=== PATIENT | male | born 1950 | race Caucasian/White ===

== ENCOUNTER 2016-09-18 14:31 | Emergency (ER) | payer OTHER ==
[~2016-09-18] VITALS: Ht 198.1 cm; Wt 81.6 kg
[~2016-09-18 14:31] MED LIST: ASPI-482 PO; ATORVASTATIN CA80 MG PO; CARV6.252 PO; CLOP75TA PO; GLIP10TA20 PO; MOXI3DRO2 OP; NEPA1.7D OP; PRED10DR OP; SITA1TAB7 PO
[2016-09-18 14:40] VITALS: BP 107/81
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
== END 2016-09-18 15:55 | disposition home or self-care (01) ==
LOC: ER 14:31
DX: S80.01XA Contusion of right knee, initial encounter (principal); E11.9 Type 2 diabetes mellitus without complications; I10 Essential (primary) hypertension; I25.2 Old myocardial infarction; F17.220 Nicotine dependence, chewing tobacco, uncomplicated; V09.9XXA Pedestrian injured in unspecified transport accident, initial encounter; Y93.55 Activity, bike riding; Y99.8 Other external cause status; Y92.89 Other specified places as the place of occurrence of the external cause
CPT/HCPCS: 73564; 99284

== ENCOUNTER → 2017-01-05 | Outpatient (CLI) | payer OTHER ==
[~2017-01-05] MED LIST changes: +GLIP-112 PO; -GLIP10TA20 PO
--- NOTE | 2017-01-05 11:14 | RAD ---
Right shoulder radiograph 01/05/2017 at 10:56 AM Indication: Adhesive capsulitis of the right shoulder. Pain and stiffness for one month. Comparison: Chest radiograph 01/21/2016 Technique: 3 views of the right shoulder are provided. Findings: There is no acute fracture or dislocation involving the acromioclavicular and glenohumeral joint. There is no soft tissue swelling. Mild osteoarthrosis is noted about the acromioclavicular joint. Visualized portions of the right lung are clear. Impression: 1. No acute fracture or dislocation. 2. Mild osteoarthrosis of the acromioclavicular joint.
[2017-01-05 11:44] LABS: ALBUMIN 3.6 g/dL (3.4-5.0); ALBUMIN/GLOBULIN RATIO 0.9 (1.0-1.7); CALCIUM 8.8 mg/dL (8.5-10.1); CREATININE 1.3 mg/dL (0.7-1.3); GFR 54.9; POTASSIUM 4.4 mmol/L (3.5-5.1); TOTAL BILIRUBIN 0.5 mg/dL (0.2-1.0); TOTAL PROTEIN 7.6 g/dL (6.4-8.2)
[2017-01-05 11:46] LABS: BASO # 0.1 x10^3/uL (0.0-0.2); BASO % 1 % (0-3); EOS # 0.3 x10^3/uL (0.0-0.7); EOS % 3 % (0-3); HEMATOCRIT 42.8 % (39.0-53.0); HEMOGLOBIN 14.1 g/dL (13.0-17.5); LYMPH # 2.4 x10^3/uL (1.0-4.8); LYMPH % 26 % (24-48); MEAN CORPUSCULAR HEMOGLOBIN 31 pg (25-35); MEAN CORPUSCULAR HGB CONC 33 g/dL (31-37); MEAN CORPUSCULAR VOLUME 93 fL (79-100); MONO # 0.6 x10^3/uL (0.0-1.1); MONO % 7 % (0-9); NEUT # 5.9 x10^3uL (1.8-7.7); NEUT % 64 % (31-73); PLATELET COUNT 192 x10^3/uL (140-400); RED CELL DISTRIBUTION WIDTH 14.1 % (11.5-14.5); WHITE BLOOD COUNT 9.3 x10^3/uL (4.0-11.0)
[2017-01-06 04:08] LABS: HEMOGLOBIN A1C 6.1 % (4.8-5.6)
== END | disposition home or self-care (01) ==
LOC: DXRAD 10:37
PROVIDERS: ATTEND Family Medicine
DX: M75.01 Adhesive capsulitis of right shoulder (principal); M19.011 Primary osteoarthritis, right shoulder
CPT/HCPCS: 36415; 73030; 80053; 83036; 85027

== ENCOUNTER → 2017-04-06 | Outpatient (CLI) | payer OTHER ==
[~2017-04-06] MED LIST changes: +ARIP10TA9 PO; +DOXE10CA PO; +GLIP10TA13 PO; +LIPITOR80 MG PO; +LISI10TA2 PO
--- NOTE | 2017-04-06 13:00 | RAD ---
Indication injury, pain. AP oblique and lateral views of the right hand were obtained. No bony abnormality is seen
== END | disposition home or self-care (01) ==
LOC: DXRAD 12:17
PROVIDERS: ATTEND Family Medicine
DX: M79.641 Pain in right hand (principal)
CPT/HCPCS: 73130

== ENCOUNTER 2017-06-21 14:59 | Inpatient (IN) | payer MEDICARE, OTHER ==
[~2017-06-21] VITALS: Ht 200.7 cm; Wt 105.2 kg
[2017-06-21 15:24] LABS: BASO # 0.1 x10^3/uL (0.0-0.2); BASO % 1 % (0-3); EOS # 0.2 x10^3/uL (0.0-0.7); EOS % 2 % (0-3); HEMATOCRIT 42.3 % (39.0-53.0); HEMOGLOBIN 14.7 g/dL (13.0-17.5); LYMPH # 1.9 x10^3/uL (1.0-4.8); LYMPH % 22 % (24-48); MEAN CORPUSCULAR HEMOGLOBIN 32 pg (25-35); MEAN CORPUSCULAR HGB CONC 35 g/dL (31-37); MEAN CORPUSCULAR VOLUME 92 fL (79-100); MONO # 0.5 x10^3/uL (0.0-1.1); MONO % 5 % (0-9); NEUT # 6.2 x10^3uL (1.8-7.7); NEUT % 70 % (31-73); PLATELET COUNT 165 x10^3/uL (140-400); RED BLOOD COUNT 4.59 x10^6/uL (4.30-5.70); RED CELL DISTRIBUTION WIDTH 13.7 % (11.5-14.5); WHITE BLOOD COUNT 8.8 x10^3/uL (4.0-11.0)
--- NOTE | 2017-06-21 15:32 | RAD ---
Clinical Indication: Altered mental status Technique: Study is dated June 21, 2017. CT images of the head were obtained from the skull base to the vertex without IV contrast. There are no comparison studies available. One or more of the following individualized dose reduction techniques were utilized for this examination: 1. Automated exposure control 2. Adjustment of the mA and/or kV according to patient size 3. Use of iterative reconstruction technique Findings: There is diffuse, symmetric prominence of the ventricles and subarachnoid spaces consistent with age-related parenchymal volume loss. There are areas of scattered decreased attenuation in the supratentorial white matter. While nonspecific, findings are likely secondary to small vessel ischemic disease. There is no hemorrhage, extraaxial fluid collection, mass, or midline shift. There is no large vascular distribution infarct. The posterior fossa and brainstem are unremarkable. There is a right scleral buckle. The visualized paranasal sinuses are clear. There is no skull fracture appreciated on bone level images. Impression: No acute intracranial findings. Brain parenchymal volume loss and probable small vessel ischemic disease. Electronically signed by: Jeffery Mcguire MD (06/21/2017 3:29 PM) [facility] – [place]
[2017-06-21 16:14] LABS: ALBUMIN 3.4 g/dL (3.4-5.0); CALCIUM 8.8 mg/dL (8.5-10.1); GFR 74.3; POTASSIUM 3.7 mmol/L (3.5-5.1); TOTAL BILIRUBIN 0.4 mg/dL (0.2-1.0); TOTAL PROTEIN 6.9 g/dL (6.4-8.2)
[2017-06-21 16:19] LABS: BILIRUBIN,URINE NEG (NEG); CLARITY,URINE CLEAR; COLOR,URINE YELLOW; GLUCOSE,URINE NEG (NEG); NITRITE,URINE NEG (NEG); UROBILINOGEN,URINE 0.2 mg/dL (0.2 mg/dL)
[2017-06-21 16:20] LABS: BACTERIA,URINE 0 /HPF (0-FEW); HYALINE CASTS, URINE OCC /HPF; SQUAMOUS EPITHELIAL CELL,UR OCC /LPF; WBC,URINE OCC /HPF (0-4)
[2017-06-21] MEDS ORDERED: IV NORMAL SALINE 1,000ML 1,000 ML IV ONE (17:00)
--- NOTE | 2017-06-21 17:00 | PHYS DOC ---
Past History Past Medical History: Dementia, Diabetes, Hypertension, [place] Past Surgical History: No Surgical History Additional Smoking Information: Pt states he uses chewing tobacco Alcohol Use: None Drug Use: None Adult General Chief Complaint Chief Complaint: ALTERED MENTAL STATUS HPI HPI Patient is a 66-year-old male brought by EMS from home after a fall. History is from the patient, his sister, and EMS. The patient has a history of dementia. He lives alone in his own home, but his neighbor put a villalba takes care of him. She fixes him meals and make sure that he takes his medications. The patient's sister is in town from [facility]. The patient's sister tells me that he has gone downhill a lot since she Josiah February. She thinks these lasted about 35 pounds. He is not eating well. He is more confused than he was then. Today, the patient was going into the house when he fell forward, striking his face on the floor. Sister was unable to get him up herself so she called 911. EMS stated they were able to get him up and he did ambulate without complaints but they felt that he was unsteady so brought him to the ED. Patient denies frequent falls, said he has had "a couple" falls. Patient does not use a walker or a cane. PCP Dr. Jennings. The patient does know who his doctor is. Review of Systems Review of Systems Patient has confusion and dementia, review of systems is felt to be inaccurate. Current Medications Current Medications Current Medications Medications (Trade) Dose Ordered Sig/Davon Start Time Stop Time Status Last Admin Dose Admin Sodium Chloride 1,000 ml @ 75 mls/hr 1X ONCE 06/21/17 17:00 06/22/17 06:19 UNV Allergies Allergies Allergies Coded Allergies Type Severity Reaction Last Updated Verified No Known Allergies Allergy Unknown 11/14/13 No Physical Exam Physical Exam Constitutional: Well developed, well nourished, no acute distress, non-toxic appearance. Alert. Cooperative. Vital signs stable. HENT: Normocephalic, bilateral external ears normal, oropharynx a bit dry, nose normal. Some redness of the right side of his face without significant swelling or deformity. 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 Neck: Normal range of motion, no stridor. [] Cardiovascular:Heart rate regular rhythm, no murmur [] Lungs & Thorax: Bilateral breath sounds clear to auscultation [] Abdomen: Bowel sounds normal, soft, no tenderness, no masses, no pulsatile masses. [] Skin: Warm, dry, no erythema, no rash. [] Extremities: No tenderness, no cyanosis, no clubbing, ROM intact, no edema. Small skin tear on the lateral aspect of the right forearm, no bony tenderness or deformity. Neurologic: Alert and oriented X 3, normal motor function, no focal deficits noted. [] Current Patient Data Vital Signs Vital Signs Date Time Temp Pulse Resp B/P (MAP) Pulse Ox O2 Delivery O2 Flow Rate FiO2 06/21/17 14:59 97.6 75 16 98 Room Air Lab Results Laboratory Tests Test 06/21/17 15:05 06/21/17 15:28 06/21/17 15:40 White Blood Count 8.8 x10^3/uL (4.0-11.0) Red Blood Count 4.59 x10^6/uL (4.30-5.70) Hemoglobin 14.7 g/dL (13.0-17.5) Hematocrit 42.3 % (39.0-53.0) Mean Corpuscular Volume 92 fL (79-100) Mean Corpuscular Hemoglobin 32 pg (25-35) Mean Corpuscular Hemoglobin Concent 35 g/dL (31-37) Red Cell Distribution Width 13.7 % (11.5-14.5) Platelet Count 165 x10^3/uL (140-400) Neutrophils (%) (Auto) 70 % (31-73) Lymphocytes (%) (Auto) 22 % (24-48) L Monocytes (%) (Auto) 5 % (0-9) Eosinophils (%) (Auto) 2 % (0-3) Basophils (%) (Auto) 1 % (0-3) Neutrophils # (Auto) 6.2 x10^3uL (1.8-7.7) Lymphocytes # (Auto) 1.9 x10^3/uL (1.0-4.8) Monocytes # (Auto) 0.5 x10^3/uL (0.0-1.1) Eosinophils # (Auto) 0.2 x10^3/uL (0.0-0.7) Basophils # (Auto) 0.1 x10^3/uL (0.0-0.2) Troponin I Quantitative < 0.017 ng/mL (0-0.055) Sodium Level 140 mmol/L (136-145) Potassium Level 3.7 mmol/L (3.5-5.1) Chloride Level 105 mmol/L (98-107) Carbon Dioxide Level 24 mmol/L (21-32) Anion Gap 11 (6-14) Blood Urea Nitrogen 14 mg/dL (8-26) Creatinine 1.0 mg/dL (0.7-1.3) Estimated GFR (Cockcroft-Gault) 74.3 BUN/Creatinine Ratio 14 (6-20) Glucose Level 87 mg/dL (70-99) Calcium Level 8.8 mg/dL (8.5-10.1) Total Bilirubin 0.4 mg/dL (0.2-1.0) Aspartate Amino Transferase (AST) 29 U/L (15-37) Alanine Aminotransferase (ALT) 37 U/L (16-63) Alkaline Phosphatase 116 U/L (46-116) Creatine Kinase 76 U/L (39-308) Creatine Kinase MB (Mass) 0.8 ng/mL (0.0-3.6) Creatine Kinase MB Relative Index 1.1 % (0-4) ZP-Yfd-T-Type Natriuretic Peptide 749 pg/mL (0-124) H Total Protein 6.9 g/dL (6.4-8.2) Albumin 3.4 g/dL (3.4-5.0) Albumin/Globulin Ratio 1.0 (1.0-1.7) Urine Collection Type Unknown Urine Color Yellow Urine Clarity Clear Urine pH 6.0 Urine Specific Bowie 1.020 Urine Protein Trace (NEG-TRACE) Urine Glucose (UA) Neg mg/dL (NEG) Urine Ketones (Stick) Trace mg/dL (NEG) Urine Blood Large (NEG) Urine Nitrite Neg (NEG) Urine Bilirubin Neg (NEG) Urine Urobilinogen Dipstick 0.2 mg/dL (0.2 mg/dL) Urine Leukocyte Esterase Neg (NEG) Urine RBC 3-5 /HPF (0-2) Urine WBC Occ /HPF (0-4) Urine Squamous Epithelial Cells Occ /LPF Urine Transitional Epithelial Cells Occ /LPF Urine Bacteria 0 /HPF (0-FEW) Urine Hyaline Casts Occ /HPF Urine Mucus Mod /LPF EKG EKG [] Radiology/Procedures Radiology/Procedures CT scan of the head read by the radiologist. No acute findings. One view portable chest x-ray read by me. Heart size normal. Lung hewitt are clear. Chest x-ray is normal.[] Course & Med Decision Making Course & Med Decision Making Pertinent Labs and Imaging studies reviewed. (See chart for details) 66-year-old male with a history of dementia presents by EMS after a fall at home. He does not have an apparent serious injury. Patient's sister is here with him and says that he has gone downhill a lot in the last 2 or 3 months. His confusion is worse, he has lost about 35 pounds. Today's fall was the first witnessed fall. Patient is having a hard time describing his symptoms although he may be dizzy or lightheaded. After labs, CT are back, ED nursing staff gave the patient a trial of ambulation. Reportedly, the patient was able to get up from his bed and walk several steps without difficulty to the doorway of the room, and then he suddenly went forward and almost fell. He was able to be caught by ED RN and put into a wheelchair. Patient said he felt dizzy. ED evaluation is quite unremarkable except for his inability to safely ambulate. The etiology of his symptoms is unclear at this time. I considered whether his symptoms could be due to a stroke. It's possible that he has had a stroke affecting his gait. However, he has a nonfocal neuro exam and cerebellar testing in the bed is normal. ED RN reported that he took several steps that appeared normal and then sort of staggered and began to fall forward, so it does not sound like a fixed neurologic deficit. On arrival, we did not have last known normal, his sister was not with him prior to witnessing the fall, she had been at the neighbor's house and had been outside with the dog, so there was never a consideration for thrombolytics, and I don't believe he would' ve met criteria anyway with a nonfocal neuro exam. I believe he should be hospitalized for some IV fluids to see if that makes any difference, and observation. If his gait does not improve, he may need to go to rehabilitation, he is not safe to be discharged to home alone certainly at this time. I discussed this with the patient and his sister who are agreeable at this time for the patient to be admitted. I discussed the case with Dr. Poe, who will admit the patient. I wrote bridge orders. Dragon Disclaimer Dragon Disclaimer This electronic medical record was generated, in whole or in part, using a voice recognition dictation system. Departure Departure: Impression: Primary Impression: Confusion Additional Impressions: Fall Altered mental status Weakness Disposition: ADMITTED INPATIENT Admitting Physician: Alissa Poe Condition: STABLE Referrals: Kali JENNINGS MD (PCP) Problem Qualifiers MIRIAM YANG MD Jun 21, 2017 16:59
[2017-06-21 18:22] VITALS: BP 166/104
[2017-06-21] MEDS ORDERED: GLIP5TAB10 PO (18:23)
[2017-06-21 18:24] VITALS: BP 166/104
[2017-06-21] MEDS ORDERED: PNEUMOCOCCAL VAX SCREEN. MC PRN (19:45)
[2017-06-21] MEDS ORDERED: ARIP10TA15 PO (20:06)
[2017-06-21] MEDS ORDERED: NICOTINE 21MG PATCH. TD PRN (20:15)
[2017-06-21] MEDS: ATORVASTATIN CALCIUM 20 MG TABLET PO SCH (20:37)
[2017-06-21] MEDS: DOXEPIN HCL 10 MG CAPSULE PO SCH (20:37)
[2017-06-21 22:37] VITALS: BP 144/86
[2017-06-22] MEDS ORDERED: DEXTROSE 50% 25 GM / 50ML DISP.SYRIN. IV PRN (01:15)
[2017-06-22 05:02] VITALS: BP 116/82
--- NOTE | 2017-06-22 08:26 | RAD ---
EXAM: CHEST 1 VIEW History: Altered mental status COMPARISON: 01/21/2016 TECHNIQUE: Single portable radiograph of the chest FINDINGS: The cardiac silhouette is unremarkable. The lungs are clear bilaterally. The costophrenic sulci are clear and well demarcated. IMPRESSION: No radiographic evidence of an acute cardiopulmonary process.
[2017-06-22] MEDS: metFORMIN 500 MG TABLET PO SCH ×2 (08:38→17:22)
[2017-06-22] MEDS: LINAGLIPTIN 5 MG TABLET PO SCH (08:38)
[2017-06-22] MEDS: glipiZIDE 5 MG TABLET PO SCH ×2 (08:38→17:22)
[2017-06-22] MEDS: CARVEDILOL 6.25 MG TABLET PO SCH ×2 (08:38→17:22)
[2017-06-22] MEDS: ARIPiprazole 10 MG TABLET PO SCH (08:39)
[2017-06-22] MEDS: LISINOPRIL 10 MG TABLET PO SCH (08:40)
[2017-06-22 10:28] VITALS: BP 166/88
--- NOTE | 2017-06-22 13:07 | HP ---
ADMIT DATE: 06/21/2017 HISTORY OF PRESENT ILLNESS: This is a 66-year-old male who lives at home. He has dementia, but he has a neighbor that looks on him and fixes his meals and make sure that he takes his medications. The patient's sister has been also visiting from out of town and states if he cannot walk then he cannot come home. He did fall at home and fell forward striking his face on the floor. Family was unable to get him up. The patient himself is quite belligerent and right now stating he wants to go home, I hate hospitals, and is refusing to stay. This is one sister who was on the phone states if he cannot walk, he cannot come home. Then, he told his sister to "go back to [place]." PAST MEDICAL HISTORY: Difficult to obtain due to the patient's dementia and belligerence, but dementia, diabetes, hypertension, history of an PR. The patient is blind in the right eye. PAST SURGICAL HISTORY: Unknown. SOCIAL HISTORY: Smoking, patient states no, does not drink. No longer drives. REVIEW OF SYSTEMS: The patient denies problems with walking. Denies shortness of breath. Denies problems falling, overall just keep stating that he wants to go home. Also, denies dizziness or lightheadedness. OBJECTIVE: VITAL SIGNS: Blood pressure is 166/88, pulse 56, respirations 20, O2 sat is 94% on room air. Height 79 inches, weight 235 pounds. GENERAL: A 66-year-old in no acute distress. The patient is blind in the right eye. The eye itself is opaque. Left eye pupils equal, round, reactive. Extraocular muscles are intact. Nose patent. Throat clear. Tongue slightly dry. NECK: Supple. LUNGS: Clear. CARDIOVASCULAR: Regular rhythm and rate. ABDOMEN: Soft, nontender. EXTREMITIES: Without edema. MUSCULOSKELETAL: The patient with effort is able to stand up. He has a very unsteady shuffling type gait at a very high risk for falling. He was able to ambulate to the doorway and back. Did not complain of dizziness. No fine tremors were noted. The patient is not completely alert and oriented. LABORATORY DATA: Chemistry profile normal except for a BMP, slightly elevated at 749. Urinalysis is negative. Chest x-ray also negative and a head CT, no acute ____ intracranial findings of the brain, parenchymal volume loss, probable small vessel ischemic disease. ASSESSMENT: 1. Status post fall. 2. Dementia. 3. 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 4. Hypertension. 5. Diabetes. 6. Significant fall risk with unsteady gait. PLAN: PT, OT eval, family meeting regarding his rehabilitation potential. The patient refuses and wants to go home, but he is at a significant risk of falling. MOIZ QUINTERO DO DR: BRIGETTE/marin JOB#: [id number] / [id number]
[2017-06-22 15:44] VITALS: BP 160/87
[2017-06-22 19:17] VITALS: BP 175/89
[2017-06-22] MEDS: DONEPEZIL HCL 5 MG TABLET. PO SCH (20:04)
[2017-06-22] MEDS: ATORVASTATIN CALCIUM 20 MG TABLET PO SCH (20:04)
[2017-06-22] MEDS: DOXEPIN HCL 10 MG CAPSULE PO SCH (20:04)
--- NOTE | 2017-06-22 21:14 | PDOC ---
Exam Note: Isauro Note: Please also refer to the separate dictated note~for this date of service dictated separately.~Patient seen individually. Discussed the patient with Nursing staff reviewed the chart.~Reviewed interim history and current functioning. Reviewed vital signs,~Labs/ Radiology~and current medications noted below. Continue current treatment with the changes noted in the dictated addendum note Assessment: Vital Signs: Vital Signs Date Time Temp Pulse Resp B/P (MAP) Pulse Ox O2 Delivery O2 Flow Rate FiO2 06/22/17 19:17 97.9 93 18 175/89 (117) 93 Room Air I&O Intake and Output 06/22/17 06:59 Intake Total 540 ml Output Total 400 ml Balance 140 ml Intake Oral 540 ml Output Urine Total 400 ml Labs: Laboratory Tests Test 06/22/17 07:38 06/22/17 11:18 06/22/17 16:33 06/22/17 19:01 Glucose (Fingerstick) 125 mg/dL (70-99) H 113 mg/dL (70-99) H 89 mg/dL (70-99) 165 mg/dL (70-99) H Current Medications: Meds: Current Medications Sodium Chloride 1,000 ml @ 75 mls/hr 1X ONCE IV Last administered on 17:00; Start 06/21/17 at 17:00; Stop 06/22/17 at 06:19; Status DC Pneumococcal Polyvalent Vaccine (Do NOT chart on this entry -- for MONITORING) 1 each PRN 1X PRN MC SEE COMMENTS; Start 06/21/17 at 19:45 Aripiprazole (Abilify) 10 mg DAILY PO Last administered on 06/22/17 08:39; Start 06/22/17 at 09:00 Carvedilol (Coreg) 6.25 mg BIDWMEALS PO Last administered on 06/22/17 17:22; Start 06/22/17 at 08:00 Doxepin HCl (SINEquan) 10 mg QHS PO Last administered on 06/22/17 20:04; Start 06/21/17 at 21:00 Glipizide (Glucotrol) 5 mg BIDBFRMEAL PO Last administered on 06/22/17 17:22 ; Start 06/22/17 at 07:30 Lisinopril (Prinivil) 10 mg DAILY PO Last administered on 06/22/17 08:40; Start 06/22/17 at 09:00 Atorvastatin Calcium (Lipitor) 80 mg QHS PO Last administered on 06/22/17 20: 04; Start 06/21/17 at 21:00 Metformin HCl (Glucophage) 500 mg BIDWMEALS PO Last administered on 06/22/17 17:22; Start 06/22/17 at 08:00 Nicotine (Nicoderm Cq 21mg) 1 patch PRN DAILY PRN TD SMOKING CESSATION; Start 06/21/17 at 20:15 Linagliptin (Tradjenta) 5 mg DAILYWBKFT PO Last administered on 06/22/17 08: 38; Start 06/22/17 at 08:00 Dextrose 12.5 gm PRN Q15MIN PRN IV SEE COMMENTS; Start 06/22/17 at 01:15 Donepezil HCl (Aricept) 5 mg QHS PO Last administered on 06/22/17 20:04; Start 06/22/17 at 21:00 Active Scripts Active Reported Aripiprazole 10 Mg Tablet 10 Mg PO DAILY Glipizide 5 Mg Tablet 1 Tab PO BID Carvedilol 6.25 Mg Tablet 1 Tab PO BID Doxepin Hcl 10 Mg Capsule 1 Cap PO QHS Janumet 50-500 Mg Tablet (Sitagliptin Phos/Metformin Hcl) 1 Each Tablet 1 Tab PO BID Lisinopril 10 Mg Tablet 1 Tab PO DAILY Atorvastatin Calcium 80 Mg Tablet 80 Mg PO HS I have reviewed the current psychotropics carefully including drug interactions. Risk benefit ratio favors no change other than as noted in my dictated progress note. Diagnosis: Problems: (1) Anxiety disorder (2) Dementia, vascular, with delusions (3) Dementia, vascular, with depression (4) Major depressive disorder, recurrent episode JAIME KEARNEY MD Jun 22, 2017 21:14
[2017-06-22 22:51] VITALS: BP 160/89
--- NOTE | 2017-06-23 03:08 | CONS ---
DATE OF CONSULTATION: 06/22/2017 PSYCHIATRIC CONSULTATION This note covers elements not covered in my initial note for 06/22/2017. IDENTIFYING DATA: The patient is a 66-year-old male referred for psychiatric consult by Dr. Rubin on account of his delusions, seeing people at times when no one is around him. He lives alone by himself in his apartment. A neighbor cares for him. The patient has been increasingly agitated, paranoid, dismissive of the neighbors help and his sister's assistance for him as well. He has appeared more confused, forgetful, can be very mean towards others when they are trying to help take care of him. He is noted to be depressed and currently on Abilify. I have been asked to consult to make recommendations on his psychotropics. CHIEF COMPLAINT: "My memory is fine. No, I don't know the year, but it is the new year. I am at [facility]." HISTORY OF PRESENT ILLNESS: As noted this note covers elements not covered in my initial note. The patient reportedly has a history of increasing psychotic symptoms, worsening symptoms of depression, hallucinations, delusions, short term memory deficits. He has been residing at home, taken care of by his neighbors, but it is getting rather dangerous recently. No active suicidal or homicidal ideation. No clear history of bipolar disorder. PAST PSYCHIATRIC HISTORY: As above. MEDICAL HISTORY: Diabetes, hypertension, history of RI, blind in the right eye. PAST SURGICAL HISTORY: Unknown. SOCIAL HISTORY: No alcohol or drug abuse history. He states he is a . Lives by himself. No longer drives. REVIEW OF SYSTEMS: Blind in right eye. Impaired ambulation. No CV, , pulmonary, ENT system symptoms on review. MENTAL STATUS EXAMINATION: Oriented to himself and situation. Speech has some latency, coherent. Abstraction fair, computation impaired, language function intact. Attention span short. Short term memory is impaired. He is quite paranoid, depressed, but minimizes the latter. No suicidal or homicidal ideation. Attention span short. A CT head shows small vessel ischemic disease. He has also been seen by Dr. Rapp. Primary care physician is Dr. Jennings in [place]. CURRENT PSYCHOTROPICS: Doxepin 10 mg at bedtime, Aricept 5 mg a day, Abilify 10 mg daily. CODE STATUS: He is full code. DRUG ALLERGIES: Negative. IMPRESSION: Major depressive disorder with psychotic features; major neurocognitive disorder, probably vascular with delusion, depression, general debility, psychotic disorder, unspecified. Rest diagnoses as above. PLAN: Continue the patient on the Aricept, Abilify, and doxepin that he is taking at current dosage. Plan is for the patient to go to the skilled rehab unit after he is medically stabilized. An option would be to [facility] given his psychotic symptoms, but I would be happy to follow him on the skilled service if needed. Dr. Rubin, thank you for the opportunity to participate in your patient's care. We will follow with you. JAIME KEARNEY MD DR: JOVANA/nts JOB#: [id number] / [id number]
--- NOTE | 2017-06-23 03:52 | CONS ---
DATE OF CONSULTATION: 06/22/2017 REASON FOR CONSULTATION: Mental status changes. HISTORY OF PRESENT ILLNESS: This is a 66-year-old male, who was admitted through Emergency Room last night after he presented with recent history of falls at home. According to his sister, the patient lives by himself and he has neighbors to take care of him. Apparently, the patient fell forward at home and was unable to get up. The visiting sister from [place] tried to help him, but she could not and then 911 was activated and brought the patient to the hospital. According to the patient, he fell twice recently. He does not use a walker or a cane. Currently, he denies nausea, vomiting, headaches, chest pain, shortness of breath or palpitation, dysarthria, dysphagia, weakness or paresthesia. According to the patient, he felt dizzy before he fell. PAST MEDICAL HISTORY: Significant for diabetes mellitus type 2, hypertension, dementia, mood disturbances and angry spells. Cataract left eye, status post eye injuries and complete loss of vision, coronary artery disease status post myocardial infarction. SOCIAL HISTORY: The patient lives independently and alone. He denies alcohol drinking, or illicit drug use. The patient is a smoker. CURRENT HOME MEDICATIONS: Lisinopril 10 mg daily, Abilify 10 mg daily, linagliptin 5 mg daily, metformin 500 mg twice daily, carvedilol 6.25 mg twice daily, glipizide 5 mg twice daily, Lipitor 80 mg at bedtime, doxepin 10 mg at bedtime. ALLERGIES: No known drug allergies. REVIEW OF SYSTEMS: A 10-point review of system was performed as mentioned above in history of present illness. PHYSICAL EXAMINATION: GENERAL: Well-developed, well-nourished white male, not in acute distress. He weighs 235 pounds, height 79 inches, not in acute distress. VITAL SIGNS: Blood pressure 166/88, respiratory rate 20, pulse is 56 and regular, temperature 98, oxygen saturation is 94% on room air. HEENT: Normocephalic, atraumatic, otherwise unremarkable. NECK: Supple. Negative for carotid bruits, lymphadenopathy or thyromegaly. LUNGS: Clear to A and P. CARDIOVASCULAR: Regular rhythm, normal S1, S2. There is no S3, S4 or murmur. ABDOMEN: Soft. Bowel sounds positive. EXTREMITIES: Negative for cyanosis, clubbing or pitting edema. NEUROLOGIC: Mental status: The patient is alert and oriented to date and place. The speech is fluent. There is no language dysfunction. Memory, judgment, and abstract thinking are impaired. The patient denies hallucination or delusion. CRANIAL NERVES: Visual hewitt are full on the left side. 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 The extraocular movements are intact. There is no nystagmus. There is no facial motor or sensory deficit. Hearing is intact bilaterally. The palate is elevated symmetrically. Sternocleidomastoid muscles are powerful bilaterally. The patient shrugs his shoulders symmetrically and protrudes his tongue in the midline without fasciculation or atrophy. MOTOR EXAMINATION: No focal muscle bulk was seen. The tone is normal. 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 Sensory examination revealed normal pinprick, light touch, vibratory and position senses. Deep tendon reflexes were symmetric and hypoactive with absent Achilles responses. Gait: The patient has a steady stance but abnormal tandem gait and had tendency to fall. DIAGNOSTIC DATA: Nonenhanced head CT scan revealed no acute intracranial process, but showed small vessel ischemic changes and chest x-ray revealed no acute cardiopulmonary process. LABORATORY DATA: CBC revealed white blood cells of 8.8 thousand; hemoglobin 14.7; hematocrit 42.3; platelet count 165,000. Chemistry revealed sodium 140, potassium 3.7, chloride 105, CO2 of 24, BUN 14, creatinine 1, glucose 87, and calcium 8.8. Troponin level less than 0.017 with an elevated NPB at 749. Urinalysis is negative for urinary tract infections. IMPRESSION: 1. Longstanding history of dementia with anger spells. Otherwise, normal neurological examination except for gait disturbances. 2. Multiple medical problems include coronary artery disease, hypertension, hyperlipidemia, diabetes mellitus type 2. 3. Depression with anger spells and dementia. RECOMMENDATIONS: 1. Continue with current care initiated by Dr. Rubin and home medications. 2. We will add donepezil 5 mg at bedtime. 3. Physical therapy evaluation and gait training. 4. For long-term, the patient may need penitentiary care or assisted living placement if it is agreeable to him. M Sunita MARIE MD DR: Maria M JOB#: [id number] / [id number]
[2017-06-23 05:09] VITALS: BP 168/93
[2017-06-23 07:10] LABS: BASO # 0.1 x10^3/uL (0.0-0.2); BASO % 1 % (0-3); EOS # 0.2 x10^3/uL (0.0-0.7); EOS % 3 % (0-3); HEMATOCRIT 40.3 % (39.0-53.0); HEMOGLOBIN 13.9 g/dL (13.0-17.5); LYMPH % 28 % (24-48); MEAN CORPUSCULAR HEMOGLOBIN 32 pg (25-35); MEAN CORPUSCULAR HGB CONC 35 g/dL (31-37); MEAN CORPUSCULAR VOLUME 92 fL (79-100); MONO # 0.4 x10^3/uL (0.0-1.1); MONO % 6 % (0-9); NEUT # 4.2 x10^3uL (1.8-7.7); NEUT % 61 % (31-73); PLATELET COUNT 147 x10^3/uL (140-400); RED BLOOD COUNT 4.38 x10^6/uL (4.30-5.70); RED CELL DISTRIBUTION WIDTH 13.4 % (11.5-14.5); WHITE BLOOD COUNT 6.9 x10^3/uL (4.0-11.0)
[2017-06-23 07:22] LABS: ALBUMIN 3.1 g/dL (3.4-5.0); CALCIUM 8.7 mg/dL (8.5-10.1); CREATININE 0.9 mg/dL (0.7-1.3); GFR 83.9; MAGNESIUM 1.5 mg/dL (1.8-2.4); POTASSIUM 3.2 mmol/L (3.5-5.1); TOTAL BILIRUBIN 0.5 mg/dL (0.2-1.0); TOTAL PROTEIN 6.3 g/dL (6.4-8.2)
[2017-06-23] MEDS ORDERED: POTASSIUM CHLORIDE 20 MEQ TABLET.ER. PO ONE (08:00)
[2017-06-23] MEDS: glipiZIDE 5 MG TABLET PO SCH ×2 (08:05→16:55)
[2017-06-23] MEDS: LISINOPRIL 10 MG TABLET PO SCH (08:05)
[2017-06-23] MEDS: CARVEDILOL 6.25 MG TABLET PO SCH ×2 (08:05→16:56)
[2017-06-23] MEDS: metFORMIN 500 MG TABLET PO SCH ×2 (08:05→16:55)
[2017-06-23] MEDS: LINAGLIPTIN 5 MG TABLET PO SCH (08:05)
[2017-06-23] MEDS: ARIPiprazole 10 MG TABLET PO SCH (08:06)
[2017-06-23] MEDS: MAGNESIUM OXIDE 400 MG TABLET PO SCH (08:09)
[2017-06-23 11:30] VITALS: BP 158/73
[2017-06-23 15:05] VITALS: BP 128/84
[2017-06-23] MEDS ORDERED: ASPI81TA50 PO (16:04)
[2017-06-23] MEDS ORDERED: LEVO112T4 PO (16:04)
--- NOTE | 2017-06-23 18:09 | PDOC ---
Exam Note: Isauro Note: Please also refer to the separate dictated note~for this date of service dictated separately.~Patient seen individually. Discussed the patient with Nursing staff reviewed the chart.~Reviewed interim history and current functioning. Reviewed vital signs,~Labs/ Radiology~and current medications noted below. Continue current treatment with the changes noted in the dictated addendum note Assessment: Vital Signs: Vital Signs Date Time Temp Pulse Resp B/P (MAP) Pulse Ox O2 Delivery O2 Flow Rate FiO2 06/23/17 16:56 88 06/23/17 15:05 98.2 20 128/84 (99) 96 Room Air I&O Intake and Output 06/23/17 07:00 Intake Total 1440 ml Output Total 1600 ml Balance -160 ml Intake Oral 1440 ml Output Urine Total 1600 ml # Voids 2 Labs: Laboratory Tests Test 06/22/17 19:01 06/23/17 06:10 06/23/17 07:44 06/23/17 11:54 Glucose (Fingerstick) 165 mg/dL (70-99) H 86 mg/dL (70-99) 123 mg/dL (70-99) H White Blood Count 6.9 x10^3/uL (4.0-11.0) Red Blood Count 4.38 x10^6/uL (4.30-5.70) Hemoglobin 13.9 g/dL (13.0-17.5) Hematocrit 40.3 % (39.0-53.0) Mean Corpuscular Volume 92 fL (79-100) Mean Corpuscular Hemoglobin 32 pg (25-35) Mean Corpuscular Hemoglobin Concent 35 g/dL (31-37) Red Cell Distribution Width 13.4 % (11.5-14.5) Platelet Count 147 x10^3/uL (140-400) Neutrophils (%) (Auto) 61 % (31-73) Lymphocytes (%) (Auto) 28 % (24-48) Monocytes (%) (Auto) 6 % (0-9) Eosinophils (%) (Auto) 3 % (0-3) Basophils (%) (Auto) 1 % (0-3) Neutrophils # (Auto) 4.2 x10^3uL (1.8-7.7) Lymphocytes # (Auto) 2.0 x10^3/uL (1.0-4.8) Monocytes # (Auto) 0.4 x10^3/uL (0.0-1.1) Eosinophils # (Auto) 0.2 x10^3/uL (0.0-0.7) Basophils # (Auto) 0.1 x10^3/uL (0.0-0.2) Sodium Level 143 mmol/L (136-145) Potassium Level 3.2 mmol/L (3.5-5.1) L Chloride Level 108 mmol/L (98-107) H Carbon Dioxide Level 27 mmol/L (21-32) Anion Gap 8 (6-14) Blood Urea Nitrogen 8 mg/dL (8-26) Creatinine 0.9 mg/dL (0.7-1.3) Estimated GFR (Cockcroft-Gault) 83.9 BUN/Creatinine Ratio 9 (6-20) Glucose Level 91 mg/dL (70-99) Calcium Level 8.7 mg/dL (8.5-10.1) Magnesium Level 1.5 mg/dL (1.8-2.4) L Total Bilirubin 0.5 mg/dL (0.2-1.0) Aspartate Amino Transferase (AST) 21 U/L (15-37) Alanine Aminotransferase (ALT) 35 U/L (16-63) Alkaline Phosphatase 92 U/L (46-116) Total Protein 6.3 g/dL (6.4-8.2) L Albumin 3.1 g/dL (3.4-5.0) L Albumin/Globulin Ratio 1.0 (1.0-1.7) Test 06/23/17 16:26 Glucose (Fingerstick) 98 mg/dL (70-99) Current Medications: Meds: Current Medications Sodium Chloride 1,000 ml @ 75 mls/hr 1X ONCE IV Last administered on 17:00; Start 06/21/17 at 17:00; Stop 06/22/17 at 06:19; Status DC Pneumococcal Polyvalent Vaccine (Do NOT chart on this entry -- for MONITORING) 1 each PRN 1X PRN MC SEE COMMENTS; Start 06/21/17 at 19:45 Aripiprazole (Abilify) 10 mg DAILY PO Last administered on 06/23/17 08:06; Start 06/22/17 at 09:00 Carvedilol (Coreg) 6.25 mg BIDWMEALS PO Last administered on 06/23/17 16:56; Start 06/22/17 at 08:00 Doxepin HCl (SINEquan) 10 mg QHS PO Last administered on 06/22/17 20:04; Start 06/21/17 at 21:00 Glipizide (Glucotrol) 5 mg BIDBFRMEAL PO Last administered on 06/23/17 16:55 ; Start 06/22/17 at 07:30 Lisinopril (Prinivil) 10 mg DAILY PO Last administered on 06/23/17 08:05; Start 06/22/17 at 09:00 Atorvastatin Calcium (Lipitor) 80 mg QHS PO Last administered on 06/22/17 20: 04; Start 06/21/17 at 21:00 Metformin HCl (Glucophage) 500 mg BIDWMEALS PO Last administered on 06/23/17 16:55; Start 06/22/17 at 08:00 Nicotine (Nicoderm Cq 21mg) 1 patch PRN DAILY PRN TD SMOKING CESSATION; Start 06/21/17 at 20:15 Linagliptin (Tradjenta) 5 mg DAILYWBKFT PO Last administered on 06/23/17 08: 05; Start 06/22/17 at 08:00 Dextrose 12.5 gm PRN Q15MIN PRN IV SEE COMMENTS; Start 06/22/17 at 01:15 Donepezil HCl (Aricept) 5 mg QHS PO Last administered on 06/22/17 20:04; Start 06/22/17 at 21:00 Magnesium Oxide (Magnesium Oxide) 400 mg DAILY PO Last administered on 08:09; Start 06/23/17 at 09:00 Potassium Chloride (Klor-Con) 40 meq 1X ONCE PO Last administered on 08:08; Start 06/23/17 at 08:00; Stop 06/23/17 at 08:01; Status DC Active Scripts Active Reported Aspir-Low (Aspirin) 81 Mg Tablet. 81 Mg PO DAILY Levothyroxine Sodium 112 Mcg Tablet 1 Tab PO DAILY Aripiprazole 10 Mg Tablet 10 Mg PO DAILY Glipizide 5 Mg Tablet 1 Tab PO BID Carvedilol 6.25 Mg Tablet 1 Tab PO BID Doxepin Hcl 10 Mg Capsule 1 Cap PO QHS Janumet 50-500 Mg Tablet (Sitagliptin Phos/Metformin Hcl) 1 Each Tablet 1 Tab PO BID Lisinopril 10 Mg Tablet 1 Tab PO DAILY Atorvastatin Calcium 80 Mg Tablet 80 Mg PO HS I have reviewed the current psychotropics carefully including drug interactions. Risk benefit ratio favors no change other than as noted in my dictated progress note. Diagnosis: Problems: (1) Dementia, vascular, with delusions (2) Dementia, vascular, with depression (3) Major depressive disorder, recurrent episode (4) Anxiety disorder JAIME KEARNEY MD Jun 23, 2017 18:09
[2017-06-23 20:18] VITALS: BP 145/77
[2017-06-23] MEDS: DOXEPIN HCL 10 MG CAPSULE PO SCH (20:47)
[2017-06-23] MEDS: DONEPEZIL HCL 5 MG TABLET. PO SCH (20:47)
[2017-06-23] MEDS: ATORVASTATIN CALCIUM 20 MG TABLET PO SCH (20:48)
--- NOTE | 2017-06-23 21:47 | PN ---
DATE: 06/23/2017 PROBLEMS: 1. Recurrent falls. 2. Dementia, vascular with delusions; dementia, vascular with depression. 3. Major depressive disorder, recurrent episode. 4. Anxiety disorder. 5. Fall risk. 6. Tobacco chewing disorder. 7. 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 8. Hypertension. SUBJECTIVE: The patient is a 66-year-old male who is admitted after a fall and unable to get up. He lives home alone and according to the family, he has become progressively weaker and unable to take care of himself and also has lost weight. We are hoping that he will be able to be eligible for a correction status. Earlier, he was not willing to stay, but now is fairly cooperative. OBJECTIVE: VITAL SIGNS: Blood pressure 168/93, pulse 68, pulse ox 96% on room air. GENERAL: More alert today. GENERAL: Again, the right eye is opaque. Left eye is clear. Nose is patent. Throat was clear. NECK: Supple. LUNGS: Clear. CARDIOVASCULAR: Regular rhythm and rate. ABDOMEN: Soft, nontender. EXTREMITIES: Without edema. LABORATORY DATA: Normal CBC, slightly low potassium today and low magnesium and moderate protein-calorie malnutrition. PLAN: He is being seen by both Neurology and Psychiatry. Appreciate their input. We will replace potassium and magnesium and PT and OT has been initiated. MOIZ QUINTERO DO DR: BRIGETTE/marin JOB#: [id number] / [id number]
[2017-06-23 23:00] VITALS: BP 166/84
[2017-06-24 06:22] VITALS: BP 188/66
[2017-06-24] MEDS: LINAGLIPTIN 5 MG TABLET PO SCH (08:44)
[2017-06-24] MEDS: MAGNESIUM OXIDE 400 MG TABLET PO SCH (08:45)
[2017-06-24] MEDS: ARIPiprazole 10 MG TABLET PO SCH (08:45)
[2017-06-24] MEDS: CARVEDILOL 6.25 MG TABLET PO SCH (08:45)
[2017-06-24] MEDS: metFORMIN 500 MG TABLET PO SCH (08:45)
[2017-06-24] MEDS: LISINOPRIL 10 MG TABLET PO SCH (08:46)
[2017-06-24] MEDS: glipiZIDE 5 MG TABLET PO SCH (08:46)
[2017-06-24] MEDS ORDERED: LISINOPRIL 10 MG TABLET PO ONE (10:00)
[2017-06-24 11:04] VITALS: BP 160/87
[2017-06-24 11:47] VITALS: BP 160/87
[2017-06-24] MEDS ORDERED: DONE5TAB56 PO (12:31)
[2017-06-24] MEDS ORDERED: MAGN400T3 PO (12:32)
--- NOTE | 2017-06-24 14:14 | PN ---
DATE: SUBJECTIVE: The patient denies any new medical or neurological complaints. He wants to go home; however, he continues to complain of aches and pain of the shoulders and other joints in the arms. OBJECTIVE: GENERAL: Well-developed, well-nourished white male, not in acute distress. VITAL SIGNS: Stable. Afebrile, blood pressure 128/84, respiratory rate 20, pulse is 72 and regular, temperature is 98.2, oxygen saturation is 96% on room air. HEENT: Normocephalic, atraumatic, otherwise unremarkable. NECK: Supple. Negative for carotid bruit, lymphadenopathy or thyromegaly. LUNGS: Clear to A and P. CARDIOVASCULAR: Regular rate and rhythm, normal S1, S2. ABDOMEN: Soft, bowel sounds positive. EXTREMITIES: Negative for cyanosis, clubbing or pitting edema. NEUROLOGICAL EXAM: Mental Status: The patient is alert and oriented to himself and place. Speech is fluent. There is no language dysfunction. Memory, the patient recalls 2/3 immediately and 1/3 after 1 and 3 minutes. Judgment and abstract thinking are fair. The patient denies hallucination or delusion. Cranial nerves are intact except for blindness, right eye. No focal motor or sensory deficit. Deep tendon reflexes were symmetric and hypoactive without pathology responses. Gait: The patient has unsteady stance. LABORATORY DATA: CBC revealed white blood cells of 6.9 thousand, hemoglobin 13.9, hematocrit 40.3, platelet count 147,000. Chemistry revealed sodium 143, potassium 3.2, chloride 108, CO2 of 27, BUN 8, creatinine 0.9. Glucose 91 and calcium 8.7. IMPRESSION: 1. Dementia with anger spells. 2. Gait disturbances. 3. Depression. 4. Multiple medical problems include coronary artery disease, hypertension, hyperlipidemia, diabetes mellitus type 2. RECOMMENDATIONS: 1. Continue with current management initiated by Dr. Rubin. 2. Physical therapy as tolerated. 3. Continue with current psychotropics. M Sunita MARIE MD DR: ANGELIC/marin JOB#: [id number] / [id number]
--- NOTE | 2017-06-24 21:42 | DS ---
DATE OF DISCHARGE: 06/24/2017 DISPOSITION: To shelter facility. DISCHARGE DIAGNOSES: 1. Status post fall. 2. Recurrent falls. 3. Diabetes type 2. 4. Elevated blood pressure. 5. Major depressive disorder, recurrent episode. 6. Anxiety. 7. Fall risk. 8. Impaired mobility. 9. Visual disturbance -- blind in one eye. 10. Tobacco chewing disorder. 11. 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 12. Major neurocognitive disorder. 13. Psychotic disorder, unspecified. HOSPITAL COURSE: This is a 66-year-old male who fell at home and family was unable to get him up and was transferred to the hospital, was found to be somewhat confused and suffering from his neurocognitive disorder with anger problem. He was evaluated by PT and OT and found to be quite unsteady and at significant risk for additional falls and it was decided that he would benefit greatly from a stay in the shelter facility. His hospitalization was uneventful with the exception of elevated blood pressure and his lisinopril was increased. PHYSICAL EXAMINATION: VITAL SIGNS: Blood pressure 160/87, pulse 56, respirations 20, pulse ox 96% on room air. Laboratories were reviewed. Medications were reviewed and reconciled. DISPOSITION: [facility] in [place] and they may call me if they have any questions. MOIZ QUINTERO DO DR: BRIGETTE/marin JOB#: [id number] / [id number]
--- NOTE | 2017-06-25 04:00 | PN ---
DATE: SUBJECTIVE: The patient denies any new medical or neurological complaints. He eats and drinks well. OBJECTIVE: GENERAL: Well-developed, well-nourished male, not in acute distress. VITAL SIGNS: Blood pressure 188/66, respiratory rate 16, pulse is 68, temperature is 97.2, oxygen saturation 95% on room air. HEENT: Normocephalic, atraumatic, otherwise unremarkable. NECK: Supple. Negative for carotid bruit, lymphadenopathy or thyromegaly. LUNGS: Clear to A and P. CARDIOVASCULAR: Regular rate and rhythm. Normal S1, S2. ABDOMEN: Soft. Bowel sounds positive. EXTREMITIES: Negative for cyanosis, clubbing or pitting edema. NEUROLOGICAL EXAM: Mental status: The patient is alert and oriented x 2. The speech is fluent. There is no language dysfunction. Cranial nerves are intact except for blindness, right eyes. No focal motor or sensory deficit. Deep tendon reflexes were symmetric and hypoactive without pathology responses. Gait: The patient still has an abnormal tandem gait. He uses a walker for ambulation. IMPRESSION: 1. Dementia. 2. Depression. 3. Multiple medical problems include coronary artery disease, hypertension, hyperlipidemia, diabetes mellitus type 2. RECOMMENDATIONS: 1. Continue with current management initiated by Dr. Rubin. We will discuss adjust blood pressure medications as increased lisinopril to 20 mg. 2. Continue with physical therapy and rehabilitation. 3. [facility] placement. M Sunita MARIE MD DR: ANGELIC/marin JOB#: [id number] / [id number]
[2017-06-25] MEDS ORDERED: LISINOPRIL 20 MG TABLET PO SCH (09:00)
--- NOTE | 2017-06-25 12:53 | PN ---
DATE: 06/23/2017 This is a late entry for 06/23/2017 and covers the elements not covered in my initial note of 06/23/2017. SUBJECTIVE: I met with the patient in the evening of 06/23/2017 and discussed with nursing staff. Overall, the patient continues to be somewhat withdrawn, confused, depressed with intermittent psychotic symptoms. He has not been agitated or aggressive. REVIEW OF SYSTEMS: Positive for his poor vision. No CV, , pulmonary, eye system symptoms on review. MENTAL STATUS EXAM: Oriented to himself and situation. Speech has some latency, anxious, somewhat depressed, suspicious, delusional. No active suicidal or homicidal ideation. Attention span short. Language function intact. Easily distractable. Intellect average Insight limited, judgment marginal. LABORATORY DATA: Reviewed. IMPRESSION: Major depressive disorder with psychotic features; major neurocognitive disorder, probably vascular with delusion, depression, psychotic disorder, unspecified. Rest unchanged. PLAN: Continue psychotropics mentioned in my initial note including Aricept, Abilify, and doxepin. The patient is presumably going to be transferred to a lower level of care, 06/24/2017 and further followup from a psychiatric standpoint should occur at that facility. JAIME KEARNEY MD DR: JOVANA/marin JOB#: [id number] / [id number]
== END 2017-06-24 11:30 | DRG 884 ==
LOC: ER 14:59 → 1 SOUTH 18:15
PROVIDERS: ADMIT Internal Medicine; ATTEND Internal Medicine
DX: F01.50 Vascular dementia, unspecified severity, without behavioral disturbance, psychotic disturbance, mood disturbance, and anxiety (principal); E44.0 Moderate protein-calorie malnutrition; F33.3 Major depressive disorder, recurrent, severe with psychotic symptoms; E11.51 Type 2 diabetes mellitus with diabetic peripheral angiopathy without gangrene; I10 Essential (primary) hypertension; G31.9 Degenerative disease of nervous system, unspecified; W18.39XA Other fall on same level, initial encounter; R29.6 Repeated falls; E78.5 Hyperlipidemia, unspecified; F17.200 Nicotine dependence, unspecified, uncomplicated; F41.9 Anxiety disorder, unspecified; R26.9 Unspecified abnormalities of gait and mobility; H54.40 Blindness, one eye, unspecified eye; H26.9 Unspecified cataract; Z60.2 Problems related to living alone; I25.10 Atherosclerotic heart disease of native coronary artery without angina pectoris; I25.2 Old myocardial infarction; Z79.84 Long term (current) use of oral hypoglycemic drugs; Z79.899 Other long term (current) drug therapy; Z91.81 History of falling; Y93.89 Activity, other specified; Y92.098 Other place in other non-institutional residence as the place of occurrence of the external cause; Y99.8 Other external cause status; Z88.8 Allergy status to other drugs, medicaments and biological substances; Z71.6 Tobacco abuse counseling; Z68.26 Body mass index [BMI] 26.0-26.9, adult
CPT/HCPCS: 36415; 70450; 71010; 80053; 81001; 82553; 82947; 83735; 83880; 84484; 85025; 96360; 97530; 99285-25; J7030